=== PATIENT | female | born 1995 | race Caucasian/White ===

== ENCOUNTER 2019-08-16 10:34 | Emergency (ER) | payer MEDICAID, SELFPAY ==
[2019-08-16 10:42] VITALS: BP 129/77; PULSE 118; RESP 20; TEMP 36.6; O2SAT 100
--- NOTE | 2019-08-16 11:11 | ED.GENADULT ---
HPI - General Adult General Chief complaint: Unspecified Stated complaint: sore throat Time Seen by Provider: 08/16/19 10:52 Source: patient Mode of arrival: ambulatory Limitations: no limitations History of Present Illness HPI narrative: This is a 23-year-old female that presents to the emergency department for sore throat since yesterday. Also reports fever and chills. Denies cough or shortness of breath. Related Data Allergies Allergy/AdvReac Type Severity Reaction Status Date / Time Penicillins Allergy Hives Verified 08/16/19 10:49 Review of Systems Review of Systems: Narrative: CONSTITUTIONAL: Report fever, chills ENT: Reports sore throat. Denies rhinorrhea, congestion, or otalgia. RESPIRATORY: Denies cough or dyspnea. All systems reviewed & are unremarkable except as noted in HPI and below PMFSH Past Medical History Medical History (Updated 08/16/19 @ 11:16 by Dariana Chase PA-C) No active medical problems Surgical History Surgical History (Updated 08/16/19 @ 11:12 by Dariana Chase PA-C) History of wisdom tooth extraction Social History Social History Gender identity (if verbalized by the patient): Female Exam Narrative: Exam Narrative: GENERAL: Well-appearing, well-nourished, and in no acute distress. HEAD: Normocephalic, atraumatic. EYES: EOMI. ENT: Nares clear, no rhinorrhea or epistaxis. Mucous membranes moist. Oropharynx with symmetric tonsillar hypertrophy and exudate, no other lesions. No trismus. Bilateral TMs pearly de [place] non-bulging NECK: Supple. No adenopathy or masses. CHEST: Clear to auscultation. No respiratory distress. No wheezes rales or rhonchi HEART: Regular rate and rhythm. No murmur heard. Normal peripheral pulses. EXTREMITIES: Normal range of motion. No edema. SKIN: Warm, dry, no rash. NEURO: No focal deficits. Alert and oriented x3. PSYCH: Normal mood and affect Course Vital Signs Vital signs: Vital Signs Temperature 98 F 08/16/19 10:42 Pulse Rate 118 H 08/16/19 10:42 Respiratory Rate 20 08/16/19 10:42 Blood Pressure 129/77 08/16/19 10:42 Pulse Oximetry 100 08/16/19 10:42 Temperature 98 F 08/16/19 10:42 Pulse Rate 118 H 08/16/19 10:42 Respiratory Rate 20 08/16/19 10:42 Blood Pressure 129/77 08/16/19 10:42 Pulse Oximetry 100 08/16/19 10:42 Medical Decision Making MDM Narrative Medical decision making narrative: Patient presents the emergency department for sore throat since yesterday. Patient's rapid strep is positive. She is afebrile and nontoxic-appearing. No evidence of peritonsillar abscess on exam. Patient will be started on oral antibiotics. She is to follow-up with primary care doctor. She was given warnings to return to the ER Vital Signs Vital Signs: Vital Signs Temperature 98 F 08/16/19 10:42 Pulse Rate 118 H 08/16/19 10:42 Respiratory Rate 08/16/19 10:42 Blood Pressure 129/77 08/16/19 10:42 Pulse Oximetry 100 08/16/19 10:42 Temperature 98 F 08/16/19 10:42 Pulse Rate 118 H 08/16/19 10:42 Respiratory Rate 08/16/19 10:42 Blood Pressure 129/77 08/16/19 10:42 Pulse Oximetry 100 08/16/19 10:42 Lab Data Labs: Strep Screen Positive Group A Strep *(Reference Range: Negative)* Critical Care Time Critical Care Time Critical Care Time: No Discharge Plan Discharge Clinical Impression: Acute streptococcal pharyngitis Patient Disposition: Home, Self-Care Condition: Stable Instructions: Antibiotic Form, Strep Throat (ED) Additional Instructions: Return to the emergency department for worsening symptoms, or any other concerns Take antibiotic as prescribed. Remain well-hydrated, get plenty of rest. Take Tylenol or Motrin [id number] for pain as needed for pain or fever. Lozenges or Chloraseptic spray for sore throat. Follow up with primary care doctor Prescriptions: New azithromycin 250 mg tablet See Rx Ins
== END 2019-08-16 11:35 | disposition home or self-care (01) ==
PROVIDERS: Emergency Provider Emergency Medicine
DX: J02.0 Streptococcal pharyngitis (principal)
CPT/HCPCS: 87880; 99283